=== PATIENT | female | born 1995 | race Caucasian/White ===

== ENCOUNTER 2018-11-09 12:23 | Emergency (ER) | payer MEDICAID ==
[~2018-11-09] VITALS: Ht 160 cm; Wt 82.6 kg
[2018-11-09 12:34] VITALS: Ht 160 cm; Wt 82.6 kg
[2018-11-09 12:52] LABS: BASOPHIL % 0.7 % (0-2); PLATELET COUNT 335 x10^3mcL (130-400); RED CELL DISTRIBUTION WIDTH 12.8 % (11.5-14.5)
[2018-11-09 13:02] LABS: CALCIUM 9.1 mg/dL (8.5-10.1); CARBON DIOXIDE 28.7 mmol/L (21-32); CREATININE SERUM 1.2 mg/dL (0.6-1.0); POTASSIUM SERUM 3.7 mmol/L (3.5-5.1)
[2018-11-09 13:17] LABS: UA SPECIFIC GRAVITY <=1.005 (1.005-1.035); microscopic required? YES; urine erythrocyte 3+ (NEGATIVE)
[2018-11-09 14:11] VITALS: BP 94/61
== END 2018-11-09 14:11 | disposition home or self-care (01) ==
LOC: ED 12:23
PROVIDERS: Emergency Medicine
DX: R55 Syncope and collapse (principal); G43.909 Migraine, unspecified, not intractable, without status migrainosus
CPT/HCPCS: J1200; J2765; J7030; Q0092